=== PATIENT | female | born 1945 | race Caucasian/White ===

== ENCOUNTER 2019-05-24 10:14 | Inpatient (IN) | payer BC, MEDICARE ==
[2019-05-24] MEDS ORDERED: PANTOPRAZOLE SODIUM 40 MG VIAL IV PRN (10:35)
[2019-05-24] MEDS ORDERED: NORMAL SALINE 1000 ML 1,000 ML IV ONE (10:35)
[2019-05-24 11:01] LABS: ABSOLUTE EOSINOPHILS # (AUTO) 0.1 10^3/uL (0.0-0.6); ABSOLUTE LYMPHOCYTES (AUTO) 1.1 10^3/uL (0.5-4.7); ABSOLUTE MONOCYTES (AUTO) 0.6 10^3/uL (0.1-1.4); ABSOLUTE NEUT (AUTO) 4.7 10^3/uL (1.7-8.2); BASOPHILS % (AUTO) 0.7 % (0-2); EOSINOPHILS % (AUTO) 1.5 % (0-6); HEMATOCRIT 27.6 % (36.0-47.0); HEMOGLOBIN 9.3 g/dL (12.0-15.5); LYMPHOCYTES % (AUTO) 16.7 % (13-45); MEAN CORPUSCULAR HEMOGLOBIN 27.8 pg (27.0-33.4); MEAN CORPUSCULAR HGB CONC 33.6 g/dL (32.0-36.0); MEAN CORPUSCULAR VOLUME 83 fl (80-97); PLATELET COUNT 212 10^3/uL (150-450); RED BLOOD COUNT 3.33 10^6/uL (3.72-5.28); SEGMENTED NEUTROPHILS % (AUTO) 72.1 % (42-78); TOTAL CELLS COUNTED % (AUTO) 100 %; WHITE BLOOD COUNT 6.6 10^3/uL (4.0-10.5)
[2019-05-24 11:03] LABS: INTERNATIONAL RATION (INR) 1.09; PARTIAL THROMBOPLASTIN TIME 27.1 SEC (23.5-35.8); PROTHROMBIN TIME 14.2 SEC (11.4-15.4)
--- NOTE | 2019-05-24 11:13 | ER Document Report ---
ED GI/ - General Chief Complaint: Vomiting Stated Complaint: VOMITING Time Seen by Provider: 05/24/19 10:23 Notes: 73-year-old female presents with nausea vomiting starting this morning. The patient began vomiting coffee-ground emesis and dark blood. Patient has no history of liver disease. She has had a history of ulcers in the past. The patient states she is on blood thinners but does not recall which ones. She denies chest pain denies shortness of breath states she is vomited many times. States she has some epigastric abdominal pain. Denies hematuria or dysuria denies falls or trauma. Denies black bloody or tarry stools. TRAVEL OUTSIDE OF THE [place] IN LAST 30 DAYS: No - Related Data Allergies/Adverse Reactions: No Known Allergies Allergy (Unverified 05/22/14 13:57) Past Medical History - Social History Smoking Status: Never Smoker Family History: Reviewed & Not Pertinent, Other Patient has suicidal ideation: No Patient has homicidal ideation: No - Past Medical History Cardiac Medical History: Reports: Hx Hypercholesterolemia, Hx Hypertension Past Surgical History: Reports: Hx Cardiac Catheterization - no stents - Immunizations Hx Diphtheria, Pertussis, Tetanus Vaccination: Yes Hx Pneumococcal Vaccination: 09/18/14 Review of Systems - Review of Systems Constitutional: denies: Chills, Fever Respiratory: denies: Hurts to breathe, Short of breath Gastrointestinal: Abdomen distended, Abdominal pain, Nausea, Vomiting, Blood in vomit. denies: Blood streaked bowels, Rectal bleeding Genitourinary: denies: Dysuria, Flank pain Neurological/Psychological: denies: Headaches -: Yes All other systems reviewed and negative Physical Exam - Vital signs Vitals: Resp Pulse Ox 20 98 05/24/19 10:43 05/24/19 10:43 - Notes Notes: GENERAL_APPEARANCE: well_nourished, alert, cooperative, vomiting appears uncomfortable VITALS: reviewed, see vital signs table. HEAD: no_swelling\tenderness on the head. EYES: PERRL, EOMI, conjunctiva_clear. NOSE: no_nasal_discharge. MOUTH: (-)decreased moisture. THROAT: no_tonsilar_inflammation, no_airway_obstruction. no_lymphadenopathy NECK: supple, no_neck_tenderness, (-)thyromegaly. BACK: no_back_tenderness. CHEST_WALL: no_chest_tenderness. LUNGS: no_wheezing, no_rales, no_rhonchi, (-)accessory muscle use, good air ex change bilateral. HEART: normal_rate, normal_rhythm, normal_S1, normal_S2, (-)S3, (-)S4, no_murmur, no_rub. ABDOMEN: normal_BS, soft, epigastric_abd_tenderness, (-)guarding, (-)rebound, no_organomegaly, no_abd_masses. EXTREMITIES: good pulses in all_extremities, no_swelling\tenderness in the ext remities, no_edema. SKIN: warm, dry, pale_color, no_rash. MENTAL_STATUS: speech_clear, oriented_X_3, normal_affect, responds_appropriately to questions. NEURO: Neg Motor or Sensory Deficits on exam, CN 2-12 intact, DTR 2+ symmetric x 4, No cerbellar signs Course - Re-evaluation Re-evalutation: 05/24/19 11:11 73-year-old female comes in vomiting coffee-ground emesis and dark blood. Patient does have a history of gastric ulcers in the past we will give her IV fluids type and screen her and start her on a Protonix drip. Patient has no history of esophageal varices or liver disease. She denies heavy alcohol use. The patient is only on aspirin that I can tell for antiplatelet and anticoagulation. 05/24/19 14:00 Patient stopped vomiting and is feeling a bit better. Hemoglobin is above 9. Patient is typed and screened. We will continue the Protonix drip bring the patient in the hospital. We will speak with hospitalist service. - Vital Signs Vital signs: Temp Pulse Resp BP Pulse Ox 97.8 F 17 133/68 H 97 05/24/19 10:47 05/24/19 11:00 05/24/19 11:00 05/24/19 11:00 - Laboratory Result Diagrams: 05/24/19 10:40 05/24/19 10:40 Laboratory results interpreted by me: 05/24/19 05/24/19 10:40 10:40 RBC 3.33 L Hgb 9.3 L Hct 27.6 L BUN 37 H Glucose 126 H Total Protein 5.7 L Salicylates < 1.0 L Acetaminophen < 10 L - Diagnostic Test Radiology reviewed: Reports reviewed Radiology results interpreted by me: 05/24/19 14:00 Abdomen/Pelvis CT 05/24/19 10:35 IMPRESSION: NO SIGNIFICANT OR ACUTE FINDING IN THE ABDOMEN OR PELVIS ON CT SCAN WITH IV CONTRAST. Chest X-Ray 05/24/19 10:35 IMPRESSION: STABLE APPEARANCE OF THE CHEST. SUPPORT DEVICES UNCHANGED. Critical Care Note - Critical Care Note Total time excluding time spent on procedures (mins): 31 Discharge - Discharge Clinical Impression: Upper GI bleed Condition: Good Disposition: ADMITTED INPATIENT Admitting Provider: Tony (Hospitalist) Unit Admitted: Telemetry
[2019-05-24 11:20] LABS: ALBUMIN 3.6 g/dL (3.5-5.0); ALKALINE PHOSPHATASE 48 U/L (38-126); ANION GAP 8 (5-19); ASPARTATE AMINO TRANSFERASE 21 U/L (14-36); BILIRUBIN,DIRECT 0.1 mg/dL (0.0-0.4); BILIRUBIN,TOTAL 0.4 mg/dL (0.2-1.3); BLOOD UREA NITROGEN 37 mg/dL (7-20); CARBON DIOXIDE 29 mmol/L (22-30); CHLORIDE 103 mmol/L (98-107); GLUCOSE 126 mg/dL (75-110); TOTAL PROTEIN 5.7 g/dL (6.3-8.2)
[2019-05-24 11:23] LABS: ACETAMINOPHEN < 10 ug/mL (10-30); ALCOHOL < 10 mg/dL (NONE DETECTED); SALICYLATE < 1.0 mg/dL (2.0-20.0)
--- NOTE | 2019-05-24 12:07 | RADIOLOGY REPORT (SQ) ---
EXAM DESCRIPTION: CT ABD/PELVIS WITH IV ONLY COMPLETED DATE/TIME: 05/24/2019 11:54 am REASON FOR STUDY: ABD Pain Bleeding COMPARISON: None. TECHNIQUE: CT scan of the abdomen and pelvis performed using helical scanning technique with dynamic intravenous contrast injection. No oral contrast. Images reviewed with lung, soft tissue, and bone windows. Reconstructed coronal and sagittal MPR images reviewed. Delayed images for evaluation of the urinary system also acquired. All images stored on PACS. All CT scanners at this facility use dose modulation, iterative reconstruction, and/or weight based d osing when appropriate to reduce radiation dose to as low as reasonably achievable (ALARA). [facility]: Dose Right [facility]: CareDose [facility]: Dose Right [facility]: Teradose 4D [facility]: Avalara CONTRAST TYPE AND DOSE: contrast/concentration: Isovue 350.00 mg/ml; Total Contrast Delivered: 98.0 ml; Total Saline Delivered: 71.0 ml RENAL FUNCTION: BUN 37, creatinine 0.8 RADIATION DOSE: CT Rad equipment meets quality standard of care and radiation dose reduction techniq ues were employed. CTDIvol: 10.7 - 14.8 mGy. DLP: 1283 mGy-cm.. LIMITATIONS: None. FINDINGS: LOWER CHEST: No significant findings. No nodules or infiltrates. There is a small indeter minate 3.5 mm nodule in the right upper lobe anteriorly. This needs no further workup. LIVER: Normal size. No masses. No dilated ducts. SPLEEN: Normal size. No focal lesions. PANCREAS: No masses. No significant calcifications. No adjacent inflammation or peripancreatic fluid collections. Pancreatic duct not dilated. GALLBLADDER: Surgically absent. ADRENAL GLANDS: No significant masses or asymmetry. RIGHT KIDNEY AND URETER: No solid masses. No significant calcifications. No hydronephrosis or hyd roureter. LEFT KIDNEY AND URETER: No solid masses. No significant calcifications. No hydronephrosis or hydr oureter. AORTA AND VESSELS: No aneurysm. No dissection. Renal arteries, SMA, celiac without stenosis. RETROPERITONEUM: No retroperitoneal adenopathy, hemorrhage or masses. BOWEL AND PERITONEAL CAVITY: No masses or inflammatory changes. No free fluid or peritoneal masses. APPENDIX: Not visualized. PELVIS: Prior hysterectomy. No free fluid. ABDOMINAL WALL: No masses. No hernias. BONES: No significant or acute findings. OTHER: No other significant finding. IMPRESSION: NO SIGNIFICANT OR ACUTE FINDING IN THE ABDOMEN OR PELVIS ON CT SCAN WITH IV CONTRAST. TECHNICAL DOCUMENTATION: JOB ID: [id number] Quality ID # [id number]: Final reports with documentation of one or more dose reduction techniques (e.g., Au tomated exposure control, adjustment of the mA and/or kV according to patient size, use of iterative reconstruction technique) 2010 [employer]- All Rights Reserved Reading location - IP/workstation name: [email or web address]
--- NOTE | 2019-05-24 12:18 | RADIOLOGY REPORT (SQ) ---
EXAM DESCRIPTION: CHEST SINGLE VIEW COMPLETED DATE/TIME: 05/24/2019 12:10 pm REASON FOR STUDY: ABD Pain Bleeding COMPARISON: 09/15/2014 NUMBER OF VIEWS: One view. TECHNIQUE: Single frontal radiographic image of the chest acquired. LIMITATIONS: None. FINDINGS: LUNGS AND PLEURA: Stable appearance. MEDIASTINUM AND HILAR STRUCTURES: Stable heart size and mediastinal structures. HEART AND VASCULAR STRUCTURES: Stable appearance. SUPPORT DEVICES: Appropriate location without change. BONES: No acute findings. OTHER: No other significant finding. IMPRESSION: STABLE APPEARANCE OF THE CHEST. SUPPORT DEVICES UNCHANGED. TECHNICAL DOCUMENTATION: JOB ID: [id number] [employer]- All Rights Reserved Reading location - IP/workstation name: [email or web address]
[2019-05-24] MEDS ORDERED: DEXTROSE 50%-WATER 25 GM/50 ML DISP.SYRIN IV PRN ×2 (15:15)
[2019-05-24] MEDS ORDERED: DEXTROSE 40% GEL 15 GM TUBE PO PRN ×2 (15:15)
[2019-05-24] MEDS ORDERED: GLUCAGON,HUMAN RECOMB 1 MG INJ SUBCUT PRN (15:15)
[2019-05-24] MEDS ORDERED: ACETAMINOPHEN 650 MG SUPP.RECT PR PRN (15:15)
[2019-05-24] MEDS ORDERED: NORMAL SALINE 1000 ML 1,000 ML IV PRN (15:15)
[2019-05-24] MEDS ORDERED: ONDANSETRON 4 MG TAB.RAPDIS PO PRN (15:15)
--- NOTE | 2019-05-24 15:15 | PDOC H&P ---
History of Present Illness Admission Date/PCP: 05/24/19 14:12 Patient complains of: Coffee-ground emesis History of Present Illness: TIANA YORK is a 73 year old female with a past medical history of coronary artery disease, cerebrovascular accident, hypertension, hyperlipidemia, depression and borderline diabetes who has been sick for 1 week. Since her hospitalization in [place] in July for pneumonia with sepsis she had been feeling well. Last week she began to have profuse watery diarrhea. This was accompanied by abdominal pain. She denied fever or diaphoresis. She did have nausea. She did call her primary care physician and was at the office this morning when she experienced coffee-ground emesis. She was referred directly to the emergency department. Examination reveals a low hemoglobin with abdominal pain. She has not had any watery stool today. Vital signs are otherwise unremarkable. She was referred to the hospitalist service for admission. Past Medical History Cardiac Medical History: Reports: Coronary Artery Disease - 2 stents, Hyperlipidema, Hypertension Pulmonary Medical History: Reports: None EENT Medical History: Reports: None Neurological Medical History: Reports: Ischemic CVA Endocrine Medical History: Reports: Other - Borderline diabetes Renal/ Medical History: Reports: None Malignancy Medical History: Reports: None GI Medical History: Reports: Peptic Ulcer Disease Musculoskeltal Medical History: Reports: Arthritis, Fibromyalgia Skin Medical History: Denies: Eczema, Psoriasis Psychiatric Medical History: Reports: Depression Traumatic Medical History: Reports: None Hematology: Reports: Anemia Infectious Medical History: Reports: Other Infectious History Note: Shingles-multiple episodes Past Surgical History Past Surgical History: Reports: Cardiac Catheterization - no stents, Cholecystectomy, Hysterectomy Social History Information Source: Patient Lives with: Alone Smoking Status: Never Smoker - Uses snuff since 6 years old Frequency of Alcohol Use: None Drugs: None Hx Prescription Drug Abuse: No Past Social History Note: . Works in [employer]. - Advance Directive Resuscitation Status: Full Code Surrogate healthcare decision maker:: Her daughter Family History Family History: Reviewed & Not Pertinent, CVA, Malignancy, Other - Cerebral aneurysm Parental Family History Reviewed: Yes Children Family History Reviewed: Yes Sibling(s) Family History Reviewed.: Yes Medication/Allergy Home Medications: Acetaminophen/Diphenhydramine [Tylenol Pm Ex-Strength Caplet] 2 tab PO QHS 05/24/19 Aspirin [Adult Low Dose Aspirin EC] 81 mg PO DAILY 05/24/19 Atorvastatin Calcium [Lipitor 20 mg Tablet] 20 mg PO QHS 05/24/19 Cholecalciferol (Vitamin D3) [Vitamin D3 2000 unit Tablet] 2,000 unit PO DAILY 05/24/19 Escitalopram Oxalate [Lexapro] 20 mg PO DAILY 05/24/19 Fluticasone Propionate [Flonase Nasal [place] 50 Mcg/[place] 16 gm] 1 spray NASL DAILY 05/24/19 Furosemide [Lasix 40 mg Tablet] 40 mg PO DAILY 05/24/19 Gabapentin [Neurontin 300 mg Capsule] 300 mg PO Q8 05/24/19 Isosorbide Dinitrate 30 mg PO BID 05/24/19 Levothyroxine Sodium 100 mcg PO Q6AM 05/24/19 Loratadine [Claritin 10 mg Tablet] 10 mg PO DAILY 05/24/19 Meloxicam [Mobic] 7.5 mg PO BID 05/24/19 Metoprolol Tartrate [Lopressor 50 mg Tablet] 50 mg PO DAILY 05/24/19 Nitroglycerin 1 spray SL Q5MP PRN 05/24/19 Douglass-3/Dha/Epa/Fish Oil [[place] 3 500 Softgel] 1 cap PO DAILY 05/24/19 Potassium Chloride [Klor-Con M10] 10 meq PO DAILY 05/24/19 Ranolazine [Ranexa] 1,000 mg PO BID 05/24/19 Ticagrelor [Brilinta 90 mg Tablet] 90 mg PO BID 05/24/19 Triamcinolone Acetonide [Aristocort 0.1% Cream] 1 applic TOP DAILYP PRN 05/24/19 Allergies/Adverse Reactions: No Known Allergies Allergy (Unverified 05/22/14 13:57) Review of Systems Constitutional: PRESENT: as per HPI, fatigue. ABSENT: fever(s), headache(s), weight loss Eyes: ABSENT: visual disturbances Ears: ABSENT: hearing changes Nose, Mouth, and Throat: ABSENT: mouth pain, sore throat Cardiovascular: PRESENT: edema - After standing on her feet at work. ABSENT: chest pain, dyspnea on exertion, palpitations Respiratory: ABSENT: cough, dyspnea, hemoptysis Gastrointestinal: PRESENT: abdominal pain, coffee ground emesis, diarrhea, nausea, vomiting Genitourinary: ABSENT: difficulty urinating, dysuria, hematuria Musculoskeletal: PRESENT: back pain, other - Polyarthralgias Integumentary: ABSENT: diaphoresis, lesions, pruritus, rash Neurological: PRESENT: abnormal speech - Recent episode of garbled speech. Happens intermittently.. ABSENT: abnormal gait, abnormal movements, confusion, lack of coordination, memory loss, syncope, vertigo Psychiatric: PRESENT: depression. ABSENT: anxiety, hallucinations Endocrine: ABSENT: cold intolerance, heat intolerance, polydipsia, polyphagia, polyuria Hematologic/Lymphatic: PRESENT: easy bruising. ABSENT: lymphadenopathy Physical Exam Vital Signs: Temp Pulse Resp BP Pulse Ox 97.8 F 17 133/68 H 97 05/24/19 10:47 05/24/19 11:00 05/24/19 11:00 05/24/19 11:00 Intake & Output 05/23/19 05/24/19 05/25/19 06:59 06:59 06:59 Intake Total 1000 Balance 1000 Weight 76.657 kg General appearance: PRESENT: no acute distress, cooperative, well-developed Head exam: PRESENT: atraumatic, normocephalic Eye exam: PRESENT: conjunctiva pale, EOMI, other - Salas-Ros rings. ABS ENT: scleral icterus Ear exam: PRESENT: normal external ear exam. ABSENT: bleeding, drainage Mouth exam: PRESENT: dry mucosa, tongue midline Respiratory exam: PRESENT: clear to auscultation miesha, symmetrical, unlabored. ABSENT: accessory muscle use, rales, rhonchi, tachypnea, wheezes Cardiovascular exam: PRESENT: RRR, +S1, +S2. ABSENT: systolic murmur GI/Abdominal exam: PRESENT: diminished bowel sounds, soft, tenderness - diffuse across the lower abdomen. ABSENT: distended, guarding Rectal exam: PRESENT: deferred Extremities exam: PRESENT: pedal edema - trace. ABSENT: calf tenderness, joint swelling Musculoskeletal exam: PRESENT: normal inspection Neurological exam: PRESENT: alert, awake, oriented to person, oriented to place, oriented to time, oriented to situation, CN II-XII grossly intact Psychiatric exam: PRESENT: appropriate affect, normal mood. ABSENT: agitated, anxious Focused psych exam: ABSENT: delusional, restlessness Skin exam: PRESENT: pallor Results Laboratory Results: 05/24/19 10:40 05/24/19 10:40 05/24/19 05/24/19 05/24/19 10:40 10:40 10:40 WBC 6.6 RBC 3.33 L Hgb 9.3 L Hct 27.6 L MCV 83 MCH 27.8 MCHC 33.6 RDW 14.0 Plt Count 212 Seg Neutrophils % 72.1 Sodium 139.7 Potassium 4.0 Chloride 103 Carbon Dioxide 29 Anion Gap 8 BUN 37 H Creatinine 0.80 Est GFR ( Amer) > 60 Glucose 126 H Calcium 9.0 Total Bilirubin 0.4 AST 21 Alkaline Phosphatase 48 Total Protein 5.7 L Albumin 3.6 Lipase 67.5 Blood Type O POSITIVE Antibody Screen NEGATIVE Impressions: Abdomen/Pelvis CT 05/24/19 10:35 IMPRESSION: NO SIGNIFICANT OR ACUTE FINDING IN THE ABDOMEN OR PELVIS ON CT SCAN WITH IV CONTRAST. Chest X-Ray 05/24/19 10:35 IMPRESSION: STABLE APPEARANCE OF THE CHEST. SUPPORT DEVICES UNCHANGED. Assessment and Plan - Diagnosis (1) Upper GI bleed Is this a current diagnosis for this admission?: Yes Plan: 05/24/2019-the patient has a history of peptic ulcer disease. She is on antiplatelet medications as well as anti-inflammatory medications. The patient was seen and scoped by Dr. Toribio and an extremely expedient fashion and he was able to tell me that she has a small pyloric channel ulcer. We will continue her Protonix infusion for tonight and change to intermittent dosing melodie orrow. I will also add Carafate. We will keep her off of anti-inflammatory medications. I have held her aspirin and Brilinta for tonight and will resume tomorrow. (2) Anemia due to blood loss Is this a current diagnosis for this admission?: Yes Plan: 05/24/2019-it is likely she has intermittent blood loss over time. I will rec heck her hemoglobin. Endoscopy did not reveal active bleeding. I will also add iron supplement to her diet. (3) Coronary artery disease Qualifiers: Coronary Disease-Associated Artery/Lesion type: [place] artery [place] vs. transplanted heart: [place] heart Associated angina: without angina Qualified Code(s): I25.10 - Atherosclerotic heart disease of [place] [facility] Is this a current diagnosis for this admission?: Yes Plan: 05/24/2019-the patient has a history of coronary stents x2. As noted above I will resume the Brilinta and aspirin tomorrow. It is most likely that the meloxicam was the cause of the ulcer. She should stay off of nonsteroidal anti- inflammatory medications. (4) Hypertension Qualifiers: Hypertension type: essential hypertension Qualified Code(s): I10 - Essential (primary) hypertension Is this a current diagnosis for this admission?: Yes Plan: 05/24/2019-she is on metoprolol. Will monitor blood pressure and adjust medications accordingly. (5) Hyperlipidemia Qualifiers: Hyperlipidemia type: unspecified Qualified Code(s): E78.5 - Hyperlipidemia, unspecified Is this a current diagnosis for this admission?: Yes Plan: 05/24/2019-continue statin therapy. 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 (6) Polyarthralgia Is this a current diagnosis for this admission?: Yes Plan: 05/24/2019-the patient uses meloxicam daily. She will need to trial other methods for treating her arthritis as the anti-inflammatories are most likely responsible for her ulcer. - Time Time Spent with patient: 35 or more minutes Medications reviewed and adjusted accordingly: Yes Anticipated discharge: Home Within: within 72 hours - Inpatient Certification Based on my medical assessment, after consideration of the patient's comorbidities, presenting symptoms, or acuity I expect that the services needed warrant INPATIENT care.: Yes I certify that my determination is in accordance with my understanding of Medicare's requirements for reasonable and necessary INPATIENT services [42 CFR 412.3e].: Yes Medical Necessity: Need For IV Fluids, Need For Continuous Telemetry Monitoring, Other - Will need to monitor serial hemoglobin levels and possibly transfuse. 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
[2019-05-24] MEDS ORDERED: DIPHENHYDRAMINE HCL 50 MG/ML VIAL ONE (16:14)
[2019-05-24] MEDS ORDERED: ONDANSETRON HCL INJ/PF 4 MG/2 ML SDV ONE (16:14)
[2019-05-24] MEDS ORDERED: EPINEPHRINE INJ 1 MG/10 ML DISP.SYRIN ONE (16:15)
[2019-05-24] MEDS ORDERED: GLUCAGON,HUMAN RECOMB 1 MG INJ ONE (16:15)
[2019-05-24] MEDS ORDERED: MIDAZOLAM 2 MG/2 ML INJ ONE (16:15)
[2019-05-24] MEDS ORDERED: NALOXONE HCL INJ/PF 0.4 MG/1 ML SDV ONE (16:15)
[2019-05-24] MEDS ORDERED: FLUMAZENIL INJ 0.5 MG/5 ML VIAL ONE (16:15)
[2019-05-24] MEDS ORDERED: FENTANYL CITRATE INJ/PF 100 MCG/2 ML AMPUL ONE (16:15)
--- NOTE | 2019-05-24 16:15 | PDOC CONSULTATION ---
Consultation Consult Date: 05/24/19 Attending physician:: SHAHNAZ PUGH Provider Consulted: JAREK RITTER Consult reason:: gi bleed History of Present Illness Admission Date/PCP: 05/24/19 14:12 History of Present Illness: TIANA YORK is a 73 year old female presents with nausea vomiting starting this morning. The patient began vomiting coffee-ground emesis and dark blood. Patient has no history of liver disease. She has had a history of ulcers in the past. The patient states she is on blood thinners but does not recall which ones. She denies chest pain denies shortness of breath states she is vomited many times. States she has some epigastric abdominal pain. Denies hematuria or dysuria denies falls or trauma. Denies black bloody or tarry stools. Past Medical History Cardiac Medical History: Reports: Hyperlipidema, Hypertension Past Surgical History Past Surgical History: Reports: Cardiac Catheterization - no stents Social History Smoking Status: Never Smoker Frequency of Alcohol Use: None Family History Family History: Reviewed & Not Pertinent, Other Parental Family History Reviewed: No Children Family History Reviewed: NA Sibling(s) Family History Reviewed.: NA Medication/Allergy Home Medications: Acetaminophen/Diphenhydramine [Tylenol Pm Ex-Strength Caplet] 2 tab PO QHS 05/24/19 Aspirin [Adult Low Dose Aspirin EC] 81 mg PO DAILY 05/24/19 Atorvastatin Calcium [Lipitor 20 mg Tablet] 20 mg PO QHS 05/24/19 Cholecalciferol (Vitamin D3) [Vitamin D3 2000 unit Tablet] 2,000 unit PO DAILY 05/24/19 Escitalopram Oxalate [Lexapro] 20 mg PO DAILY 05/24/19 Fluticasone Propionate [Flonase Nasal [place] 50 Mcg/[place] 16 gm] 1 spray NASL DAILY 05/24/19 Furosemide [Lasix 40 mg Tablet] 40 mg PO DAILY 05/24/19 Gabapentin [Neurontin 300 mg Capsule] 300 mg PO Q8 05/24/19 Isosorbide Dinitrate 30 mg PO BID 05/24/19 Levothyroxine Sodium 100 mcg PO Q6AM 05/24/19 Loratadine [Claritin 10 mg Tablet] 10 mg PO DAILY 05/24/19 Meloxicam [Mobic] 7.5 mg PO BID 05/24/19 Metoprolol Tartrate [Lopressor 50 mg Tablet] 50 mg PO DAILY 05/24/19 Nitroglycerin 1 spray SL Q5MP PRN 05/24/19 Amlin-3/Dha/Epa/Fish Oil [[place]mlin 3 500 Softgel] 1 cap PO DAILY 05/24/19 Potassium Chloride [Klor-Con M10] 10 meq PO DAILY 05/24/19 Ranolazine [Ranexa] 1,000 mg PO BID 05/24/19 Ticagrelor [Brilinta 90 mg Tablet] 90 mg PO BID 05/24/19 Triamcinolone Acetonide [Aristocort 0.1% Cream] 1 applic TOP DAILYP PRN 05/24/19 Allergies/Adverse Reactions: No Known Allergies Allergy (Unverified 05/22/14 13:57) Review of Systems Constitutional: PRESENT: fatigue Eyes: ABSENT: visual disturbances Ears: ABSENT: hearing changes Nose, Mouth, and Throat: ABSENT: as per HPI, headache(s), mouth pain, sore throat, vertigo, other Breasts: ABSENT: as per HPI, other Cardiovascular: ABSENT: as per HPI, chest pain, dyspnea on exertion, edema, orthropnea, palpitations, other Respiratory: ABSENT: as per HPI, cough, dyspnea, hemoptysis, sputum, other Gastrointestinal: PRESENT: hematemesis, nausea, vomiting Genitourinary: ABSENT: as per HPI, difficulty urinating, dysuria, hematuria, nocturia, other Musculoskeletal: ABSENT: as per HPI, back pain, deformity, joint swelling, muscle weakness, other Integumentary: ABSENT: as per HPI, diaphoresis, erythema, lesions, pruritus, rash, wounds, other Neurological: ABSENT: as per HPI, abnormal gait, abnormal movements, abnormal speech, confusion, convulsions, dizziness, focal weakness, frequent falls, lack of coordination, memory loss, numbness, paresthesias, restless legs, syncope, tingling, tremor(s), vertigo, weakness, other Psychiatric: ABSENT: as per HPI, anxiety, depression, hallucinations, homidical ideation, suicidal ideation, other Endocrine: ABSENT: as per HPI, cold intolerance, flushing, heat intolerance, menstrual abnormalities, polydipsia, polyphagia, polyuria, other Hematologic/Lymphatic: ABSENT: as per HPI, easy bleeding, easy bruising, lymphadenopathy, other Allergic/Immunologic: ABSENT: as per HPI, seasonal rhinorrhea, other Physical Exam Vital Signs: Temp Pulse Resp BP Pulse Ox 97.8 F 17 133/68 H 97 05/24/19 10:47 05/24/19 11:00 05/24/19 11:00 05/24/19 11:00 Intake & Output 05/23/19 05/24/19 05/25/19 06:59 06:59 06:59 Intake Total 1000 Balance 1000 Weight 76.657 kg General appearance: PRESENT: no acute distress Head exam: PRESENT: normocephalic Eye exam: PRESENT: EOMI Ear exam: PRESENT: normal external ear exam Mouth exam: PRESENT: moist Teeth exam: PRESENT: poor dentation Neck exam: PRESENT: full ROM Respiratory exam: PRESENT: clear to auscultation miesha Cardiovascular exam: PRESENT: RRR Pulses: PRESENT: normal radial pulses, normal femoral pulses Vascular exam: PRESENT: pallor GI/Abdominal exam: PRESENT: soft Rectal exam: PRESENT: deferred Extremities exam: PRESENT: full ROM Musculoskeletal exam: PRESENT: full ROM Neurological exam: PRESENT: alert, awake, oriented to person, oriented to place Psychiatric exam: PRESENT: appropriate affect Skin exam: PRESENT: dry Results Laboratory Results: 05/24/19 10:40 05/24/19 10:40 05/24/19 05/24/19 05/24/19 10:40 10:40 10:40 WBC 6.6 RBC 3.33 L Hgb 9.3 L Hct 27.6 L MCV 83 MCH 27.8 MCHC 33.6 RDW 14.0 Plt Count 212 Seg Neutrophils % 72.1 Sodium 139.7 Potassium 4.0 Chloride 103 Carbon Dioxide 29 Anion Gap 8 BUN 37 H Creatinine 0.80 Est GFR ( Amer) > 60 Glucose 126 H Calcium 9.0 Total Bilirubin 0.4 AST 21 Alkaline Phosphatase 48 Total Protein 5.7 L Albumin 3.6 Lipase 67.5 Blood Type O POSITIVE Antibody Screen NEGATIVE Impressions: Abdomen/Pelvis CT 05/24/19 10:35 IMPRESSION: NO SIGNIFICANT OR ACUTE FINDING IN THE ABDOMEN OR PELVIS ON CT SCAN WITH IV CONTRAST. Chest X-Ray 05/24/19 10:35 IMPRESSION: STABLE APPEARANCE OF THE CHEST. SUPPORT DEVICES UNCHANGED. Assessment & Plan - Plan Summary Plan Summary: pt with previous hx of ulcer, on antiplatlets now hematemesis, and anemia related to gi bleed will plan on upper esophageogastroduodenoscopy.
--- NOTE | 2019-05-24 17:10 | Operative Report ---
Nonrecallable Operative Report DATE OF SURGERY: 05/24/19 PREOPERATIVE DIAGNOSIS: hemetemesis POSTOPERATIVE DIAGNOSIS: hemetemesis OPERATION: esophagogastroduodenoscopy SURGEON: JAREK RITTER ANESTHESIA: Moderate Sedation TISSUE REMOVED OR ALTERED: gastric ulcer bx COMPLICATIONS: none ESTIMATED BLOOD LOSS: 0 PROCEDURE: after appropiate time out and site verification patient was given IV sedation using fentanyl and Versed. She was placed in the left lateral decubitus position and the posterior pharynx was anesthetized with Hurricaine spray. The Olympus gastroscope was passed into the posterior pharynx patient easily to the scope past the proximal sphincter into the esophagus was passed in through the gastroesophageal junction to the stomach there is no obvious bleeding within the body and antrum of the stomach as we progressed through the antrum we noted the pylorus and just above the pylorus and the pyloric channel there was a ulcer approximately 0.5 cm diameter with heaped up to edges it was not bleeding and had a clean the central base. Scope was then passed into the pylorus into the second portion of the duodenum and that appeared to be normal without evidence evidence of any bleeding. As we withdrew the scope past the pylorus we checked again for any pyloric ulcers are worse none however this small 0.5 cm ulcers in the pyloric channel was again identified and biopsied one edge was biopsied with a biopsy forceps and hemostasis was noted to be intact after the biopsy was removed. Scope was then retroflexed to identify the GE junction and she had a moderate sized hiatal hernia. Scope was then straightened out and pulled slowly back through the gastroesophageal junction identifying the distal esophagus which appeared to be normal as we withdrew through the esophagus we did not note any other lesions. The scope was then removed. Impression ;pyloric channel ulcer nonbleeding biopsies pending Recommendations patient will be placed on a Protonix drip add Carafate suspension 10 cc p.o. 4 times daily Patient will need a surgical clinic follow-up after discharge
[2019-05-24] MEDS ORDERED: NITROGLYCERIN SL PRN (17:20)
[2019-05-24] MEDS ORDERED: (PENDING PHARMACY ID) (Ranolazine [Ranexa] 1,000 MG) PO SCH (18:00)
[2019-05-24] MEDS ORDERED: (PENDING PHARMACY ID) (Isosorbide Dinitrate [Isosorbide Dinitrate] 30 MG) PO SCH (18:00)
[2019-05-24] MEDS: GABAPENTIN 300 MG CAPSULE PO SCH (21:19)
[2019-05-24] MEDS: ISOSORBIDE DINITRATE 20 MG TABLET PO SCH ×2 (21:19→21:28)
[2019-05-24] MEDS: NORMAL SALINE 100 ML with PANTOPRAZOLE SODIUM 80 MG IV PRN ×2 (21:19)
[2019-05-24] MEDS: ATORVASTATIN CALCIUM 20 MG TABLET PO SCH (21:19)
[2019-05-24] MEDS: RANOLAZINE 500 MG TAB.SR.12H PO SCH (21:19)
[2019-05-24] MEDS: SUCRALFATE 1 GM TABLET PO SCH (21:20)
[2019-05-24] MEDS: TEMAZEPAM 15 MG CAPSULE PO PRN (21:22)
[2019-05-24 22:07] LABS: ABSOLUTE EOSINOPHILS # (AUTO) 0.1 10^3/uL (0.0-0.6); ABSOLUTE LYMPHOCYTES (AUTO) 1.3 10^3/uL (0.5-4.7); ABSOLUTE MONOCYTES (AUTO) 0.6 10^3/uL (0.1-1.4); ABSOLUTE NEUT (AUTO) 3.2 10^3/uL (1.7-8.2); BASOPHILS % (AUTO) 0.4 % (0-2); EOSINOPHILS % (AUTO) 1.7 % (0-6); HEMATOCRIT 21.3 % (36.0-47.0); LYMPHOCYTES % (AUTO) 24.9 % (13-45); MEAN CORPUSCULAR HGB CONC 33.8 g/dL (32.0-36.0); MEAN CORPUSCULAR VOLUME 83 fl (80-97); PLATELET COUNT 179 10^3/uL (150-450); RED BLOOD COUNT 2.57 10^6/uL (3.72-5.28); TOTAL CELLS COUNTED % (AUTO) 100 %; WHITE BLOOD COUNT 5.1 10^3/uL (4.0-10.5)
[2019-05-24 22:12] LABS: HEMOGLOBIN 7.2 g/dL (12.0-15.5)
[2019-05-24] MEDS ORDERED: ACETAMINOPHEN 325 MG TABLET PO PRN (23:22)
[2019-05-24] MEDS ORDERED: FUROSEMIDE INJ/PF 20 MG/2 ML SDV IV PRN (23:23)
[2019-05-25] MEDS: ACETAMINOPHEN 325 MG TABLET PO PRN (03:54)
[2019-05-25] MEDS: DIPHENHYDRAMINE HCL 25 MG CAPSULE PO PRN ×2 (03:54→09:35)
[2019-05-25] MEDS: LEVOTHYROXINE SODIUM 0.1 MG TABLET PO SCH (05:10)
[2019-05-25] MEDS: GABAPENTIN 300 MG CAPSULE PO SCH ×3 (05:10→21:14)
[2019-05-25 08:21] LABS: ANION GAP 6 (5-19); BLOOD UREA NITROGEN 24 mg/dL (7-20); CALCIUM 8.5 mg/dL (8.4-10.2); CARBON DIOXIDE 25 mmol/L (22-30); CHLORIDE 109 mmol/L (98-107); GLUCOSE 81 mg/dL (75-110); POTASSIUM 4.1 mmol/L (3.6-5.0)
[2019-05-25] MEDS: ISOSORBIDE DINITRATE 20 MG TABLET PO SCH ×2 (09:34→21:14)
[2019-05-25] MEDS: RANOLAZINE 500 MG TAB.SR.12H PO SCH ×2 (09:34→21:14)
[2019-05-25] MEDS: LORATADINE 10 MG TABLET PO SCH (09:34)
[2019-05-25] MEDS: FUROSEMIDE 40 MG TABLET PO SCH (09:34)
[2019-05-25] MEDS: METOPROLOL TARTRATE 50 MG TABLET PO SCH (09:34)
[2019-05-25] MEDS: ASPIRIN 81 MG TABLET, ENT COATED PO SCH (09:34)
[2019-05-25] MEDS: FERROUS SULFATE 325 MG TABLET PO SCH ×2 (09:35→18:29)
[2019-05-25] MEDS: POTASSIUM CHLORIDE 10 MEQ CAPSULE.ER PO SCH (09:35)
[2019-05-25] MEDS: ESCITALOPRAM OXALATE 10 MG TABLET PO SCH (09:35)
[2019-05-25] MEDS: FLUTICASONE NASAL SPRAY 50 MCG/SPRY 120 SPRAY/16 GM NASL SCH (09:36)
[2019-05-25] MEDS: SUCRALFATE 1 GM TABLET PO SCH ×4 (09:45→21:14)
[2019-05-25] MEDS ORDERED: TICAGRELOR 90 MG TABLET PO SCH (10:00)
[2019-05-25] MEDS ORDERED: (PENDING PHARMACY ID) (Potassium Chloride [Klor-Con M10] 10 MEQ) PO SCH (10:00)
[2019-05-25] MEDS: NORMAL SALINE 100 ML with PANTOPRAZOLE SODIUM 80 MG IV PRN ×2 (13:24)
--- NOTE | 2019-05-25 13:30 | PDOC PROGRESS REPORT ---
Subjective Progress Note for:: 05/25/19 Subjective:: Patient was seen and examined. She is doing well. She is tolerating diet. She had a bowel movement that was black today. Hemoglobin dropped to 7.2. She already received 1 unit of blood and will receive another unit today. EGD was positive for pyloric channel ulcer. Reason For Visit: UPPER GI BLEED Physical Exam Vital Signs: Temp Pulse Resp BP Pulse Ox 97.7 F 75 16 119/42 L 98 05/25/19 08:20 05/25/19 08:20 05/25/19 08:20 05/25/19 08:20 05/25/19 08:20 Intake & Output 05/24/19 05/25/19 05/26/19 06:59 06:59 06:59 Intake Total 2400 350 Balance 2400 350 Weight 169 lb 8.568 oz Exam: Patient is no acute distress Alert oriented to time place person No anxiety or depression Head: atraumatic normocephalic Pupils: are equal reactive Neck: is supple and trachea is central no lymphadenopathy No pharyngeal erythema or exudates Heart: Regular rate and rhythm Lungs: clear no distress Abdomen: nontender nondistended Neurological exam: unremarkable Musculoskeletal: No joint swelling or effusion chronic lower back pain and tenderness No suicidal or homicidal ideation Results Laboratory Results: 05/24/19 21:56 05/25/19 07:37 05/24/19 05/24/19 05/25/19 10:40 21:56 07:37 WBC 5.1 RBC 2.57 L Hgb 7.2 L D Hct 21.3 L MCV 83 MCH 28.0 MCHC 33.8 RDW 14.0 Plt Count 179 Seg Neutrophils % 62.0 Sodium 139.8 Potassium 4.1 Chloride 109 H Carbon Dioxide 25 Anion Gap 6 BUN 24 H Creatinine 0.84 Est GFR ( Amer) > 60 Glucose 81 Calcium 8.5 Magnesium 2.2 TSH Blood Type O POSITIVE Antibody Screen NEGATIVE 05/25/19 07:37 WBC RBC Hgb Hct MCV MCH MCHC RDW Plt Count Seg Neutrophils % Sodium Potassium Chloride Carbon Dioxide Anion Gap BUN Creatinine Est GFR ( Amer) Glucose Calcium Magnesium TSH 0.04 L Blood Type Antibody Screen Impressions: Abdomen/Pelvis CT 05/24/19 10:35 IMPRESSION: NO SIGNIFICANT OR ACUTE FINDING IN THE ABDOMEN OR PELVIS ON CT SCAN WITH IV CONTRAST. Chest X-Ray 05/24/19 10:35 IMPRESSION: STABLE APPEARANCE OF THE CHEST. SUPPORT DEVICES UNCHANGED. Assessment and Plan - Diagnosis (1) Upper GI bleed Is this a current diagnosis for this admission?: Yes Plan: 05/24/2019-the patient has a history of peptic ulcer disease. She is on ant iplatelet medications as well as anti-inflammatory medications. The patient was seen and scoped by Dr. Toribio and an extremely expedient fashion and he was able to tell me that she has a small pyloric channel ulcer. We will continue her Protonix infusion for tonight and change to intermittent dosing tomorrow. I will also add Carafate. We will keep her off of anti-inflammatory medications. I have held her aspirin and Brilinta for tonight and will resume tomorrow. 05/25/2019: Stop NSAIDs. Continue Protonix drip and Carafate. Continue aspirin. Hold Brilinta for now. (2) Anemia due to blood loss Is this a current diagnosis for this admission?: Yes Plan: 05/24/2019-it is likely she has intermittent blood loss over time. I will recheck her hemoglobin. Endoscopy did not reveal active bleeding. I will also add iron supplement to her diet. 05/25: Hemoglobin dropped to 7.2. She received 1 unit and will get another unit today. Monitor hemoglobin hematocrit. Transfuse as needed. (3) Coronary artery disease Qualifiers: Coronary Disease-Associated Artery/Lesion type: [place] artery [place] vs. transplanted heart: [place] heart Associated angina: without angina Qualified Code(s): I25.10 - Atherosclerotic heart disease of [place] coronary artery without angina pectoris Is this a current diagnosis for this admission?: Yes Plan: 05/24/2019-the patient has a history of coronary stents x2. As noted above I will resume the Brilinta and aspirin tomorrow. It is most likely that the meloxicam was the cause of the ulcer. She should stay off of nonsteroidal anti- inflammatory medications. 05/25: Continue aspirin. Hold Brilinta for now. Continue all cardiac medications otherwise. (4) Hyperlipidemia Qualifiers: Hyperlipidemia type: unspecified Qualified Code(s): E78.5 - Hyperlipidemia, unspecified Is this a current diagnosis for this admission?: Yes Plan: 05/24/2019-continue statin therapy. Will not make any dose adjustments but rather defer to her business process associate. 05/25: Continue statin (5) Hypertension Qualifiers: Hypertension type: essential hypertension Qualified Code(s): I10 - Essential (primary) hypertension Is this a current diagnosis for this admission?: Yes Plan: 05/24/2019-she is on metoprolol. Will monitor blood pressure and adjust medications accordingly. 05/25: Continue current meds. Monitor blood pressure. (6) Polyarthralgia Is this a current diagnosis for this admission?: Yes Plan: 05/24/2019-the patient uses meloxicam daily. She will need to trial other methods for treating her arthritis as the anti-inflammatories are most likely responsible for her ulcer. 05/25: Recommend against NSAIDs.
[2019-05-25 14:08] LABS: ANION GAP 7 (5-19); BLOOD UREA NITROGEN 20 mg/dL (7-20); CALCIUM 8.2 mg/dL (8.4-10.2); CARBON DIOXIDE 28 mmol/L (22-30); CHLORIDE 106 mmol/L (98-107); GLUCOSE 101 mg/dL (75-110); POTASSIUM 3.9 mmol/L (3.6-5.0)
[2019-05-25 17:30] LABS: ABSOLUTE EOSINOPHILS # (AUTO) 0.1 10^3/uL (0.0-0.6); ABSOLUTE LYMPHOCYTES (AUTO) 1.5 10^3/uL (0.5-4.7); ABSOLUTE MONOCYTES (AUTO) 0.6 10^3/uL (0.1-1.4); ABSOLUTE NEUT (AUTO) 4.8 10^3/uL (1.7-8.2); BASOPHILS % (AUTO) 0.5 % (0-2); EOSINOPHILS % (AUTO) 1.6 % (0-6); HEMATOCRIT 29.8 % (36.0-47.0); MEAN CORPUSCULAR HEMOGLOBIN 27.9 pg (27.0-33.4); MEAN CORPUSCULAR HGB CONC 33.8 g/dL (32.0-36.0); MEAN CORPUSCULAR VOLUME 83 fl (80-97); MONOCYTES % (AUTO) 8.5 % (3-13); PLATELET COUNT 188 10^3/uL (150-450); RED CELL DISTRIBUTION WIDTH 14.3 % (11.5-14.0); SEGMENTED NEUTROPHILS % (AUTO) 68.4 % (42-78); TOTAL CELLS COUNTED % (AUTO) 100 %
[2019-05-25 17:33] LABS: HEMOGLOBIN 10.1 g/dL (12.0-15.5)
[2019-05-25] MEDS: TEMAZEPAM 15 MG CAPSULE PO PRN (21:14)
[2019-05-25] MEDS: ATORVASTATIN CALCIUM 20 MG TABLET PO SCH (21:14)
[2019-05-26 05:29] LABS: ABSOLUTE EOSINOPHILS # (AUTO) 0.2 10^3/uL (0.0-0.6); ABSOLUTE LYMPHOCYTES (AUTO) 1.9 10^3/uL (0.5-4.7); ABSOLUTE MONOCYTES (AUTO) 0.6 10^3/uL (0.1-1.4); ABSOLUTE NEUT (AUTO) 4.4 10^3/uL (1.7-8.2); BASOPHILS % (AUTO) 0.5 % (0-2); EOSINOPHILS % (AUTO) 2.5 % (0-6); HEMATOCRIT 28.7 % (36.0-47.0); HEMOGLOBIN 9.7 g/dL (12.0-15.5); LYMPHOCYTES % (AUTO) 26.9 % (13-45); MEAN CORPUSCULAR HEMOGLOBIN 28.2 pg (27.0-33.4); MEAN CORPUSCULAR HGB CONC 33.8 g/dL (32.0-36.0); MEAN CORPUSCULAR VOLUME 84 fl (80-97); MONOCYTES % (AUTO) 8.4 % (3-13); PLATELET COUNT 167 10^3/uL (150-450); RED BLOOD COUNT 3.43 10^6/uL (3.72-5.28); RED CELL DISTRIBUTION WIDTH 14.4 % (11.5-14.0); SEGMENTED NEUTROPHILS % (AUTO) 61.7 % (42-78); TOTAL CELLS COUNTED % (AUTO) 100 %
[2019-05-26] MEDS: LEVOTHYROXINE SODIUM 0.1 MG TABLET PO SCH (05:43)
[2019-05-26] MEDS: GABAPENTIN 300 MG CAPSULE PO SCH ×3 (05:43→21:51)
[2019-05-26] MEDS: NORMAL SALINE 100 ML with PANTOPRAZOLE SODIUM 80 MG IV PRN ×2 (05:45)
[2019-05-26] MEDS: FERROUS SULFATE 325 MG TABLET PO SCH ×2 (08:20→18:58)
[2019-05-26] MEDS: SUCRALFATE 1 GM TABLET PO SCH ×4 (08:20→21:51)
[2019-05-26] MEDS: METOPROLOL TARTRATE 50 MG TABLET PO SCH (10:39)
[2019-05-26] MEDS: LORATADINE 10 MG TABLET PO SCH (10:40)
[2019-05-26] MEDS: ASPIRIN 81 MG TABLET, ENT COATED PO SCH (10:40)
[2019-05-26] MEDS: POTASSIUM CHLORIDE 10 MEQ CAPSULE.ER PO SCH (10:41)
[2019-05-26] MEDS: FLUTICASONE NASAL SPRAY 50 MCG/SPRY 120 SPRAY/16 GM NASL SCH (10:41)
[2019-05-26] MEDS: ISOSORBIDE DINITRATE 20 MG TABLET PO SCH ×2 (10:42→21:51)
[2019-05-26] MEDS: FUROSEMIDE 40 MG TABLET PO SCH (10:43)
[2019-05-26] MEDS: ESCITALOPRAM OXALATE 10 MG TABLET PO SCH (10:43)
[2019-05-26] MEDS: RANOLAZINE 500 MG TAB.SR.12H PO SCH ×2 (10:45→21:51)
--- NOTE | 2019-05-26 13:27 | PDOC PROGRESS REPORT ---
Subjective Progress Note for:: 05/26/19 Subjective:: 05/25: Patient was seen and examined. She is doing well. She is tolerating diet. She had a bowel movement that was black today. Hemoglobin dropped to 7.2. She already received 1 unit of blood and will receive another unit today. EGD was positive for pyloric channel ulcer. 05/26: Patient is tolerating diet. She is feeling better. Her hemoglobin improved after transfusion. She is still on Protonix drip. Reason For Visit: UPPER GI BLEED Physical Exam Vital Signs: Temp Pulse Resp BP Pulse Ox 97.8 F 67 17 106/49 L 100 05/26/19 12:14 05/26/19 12:14 05/26/19 12:14 05/26/19 12:14 05/26/19 12:14 Intake & Output 05/25/19 05/26/19 05/27/19 06:59 06:59 06:59 Intake Total 2400 2381 Output Total 500 Balance 2400 1881 Weight 169 lb 8.568 oz 168 lb 10.458 oz Exam: Patient is no acute distress Alert oriented to time place person No anxiety or depression Head: atraumatic normocephalic Pupils: are equal reactive Neck: is supple and trachea is central no lymphadenopathy No pharyngeal erythema or exudates Heart: Regular rate and rhythm Lungs: clear no distress Abdomen: nontender nondistended Neurological exam: unremarkable Musculoskeletal: No joint swelling or effusion chronic lower back pain and tenderness No suicidal or homicidal ideation Results Laboratory Results: 05/26/19 04:21 05/25/19 13:40 05/25/19 05/25/19 05/26/19 13:40 17:09 04:21 WBC 7.0 7.0 RBC 3.60 L 3.43 L Hgb 10.1 L D 9.7 L Hct 29.8 L 28.7 L MCV 83 84 MCH 27.9 28.2 MCHC 33.8 33.8 RDW 14.3 H 14.4 H Plt Count 188 167 Seg Neutrophils % 68.4 61.7 Sodium 140.7 Potassium 3.9 Chloride 106 Carbon Dioxide 28 Anion Gap 7 BUN 20 Creatinine 0.85 Est GFR ( Amer) > 60 Glucose 101 Calcium 8.2 L Impressions: Abdomen/Pelvis CT 05/24/19 10:35 IMPRESSION: NO SIGNIFICANT OR ACUTE FINDING IN THE ABDOMEN OR PELVIS ON CT SCAN WITH IV CONTRAST. Chest X-Ray 05/24/19 10:35 IMPRESSION: STABLE APPEARANCE OF THE CHEST. SUPPORT DEVICES UNCHANGED. Assessment and Plan - Diagnosis (1) Upper GI bleed Is this a current diagnosis for this admission?: Yes Plan: 05/24: the patient has a history of peptic ulcer disease. She is on antiplatelet medications as well as anti-inflammatory medications. The patient was seen and scoped by Dr. Toribio and an extremely expedient fashion and he was able to tell me that she has a small pyloric channel ulcer. We will continue her Protonix infusion for tonight and change to intermittent dosing tomorrow. I will also add Carafate. We will keep her off of anti-inflammatory medications. I have held her aspirin and Brilinta for tonight and will resume tomorrow. 05/25: Stop NSAIDs. Continue Protonix drip and Carafate. Continue aspirin. Hold Brilinta for now. 05/26: DC Protonix drip and start oral Protonix. Continue Carafate. Continue aspirin. Continue to hold Brilinta. (2) Anemia due to blood loss Is this a current diagnosis for this admission?: Yes Plan: 05/24/2019-it is likely she has intermittent blood loss over time. I will recheck her hemoglobin. Endoscopy did not reveal active bleeding. I will also add iron supplement to her diet. 05/25: Hemoglobin dropped to 7.2. She received 1 unit and will get another unit today. Monitor hemoglobin hematocrit. Transfuse as needed. 05/26: Hemoglobin improved to 9.7 today after transfusions 2 units yesterday. Continue to monitor. (3) Coronary artery disease Qualifiers: Coronary Disease-Associated Artery/Lesion type: [place] artery [place] vs. transplanted heart: [place] heart Associated angina: without angina Qualified Code(s): I25.10 - Atherosclerotic heart disease of [place] coronary artery without angina pectoris Is this a current diagnosis for this admission?: Yes Plan: 05/24/2019-the patient has a history of coronary stents x2. As noted above I will resume the Brilinta and aspirin tomorrow. It is most likely that the melox icam was the cause of the ulcer. She should stay off of nonsteroidal anti- inflammatory medications. 05/25: Continue aspirin. Hold Brilinta for now. Continue all cardiac medications otherwise. 05/26: Continue to hold for now. (4) Hyperlipidemia Qualifiers: Hyperlipidemia type: unspecified Qualified Code(s): E78.5 - Hyperlipidemia, unspecified Is this a current diagnosis for this admission?: Yes Plan: 05/24/2019-continue statin therapy. 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 05/25: Continue statin (5) Hypertension Qualifiers: Hypertension type: essential hypertension Qualified Code(s): I10 - Essential (primary) hypertension Is this a current diagnosis for this admission?: Yes Plan: 05/24/2019-she is on metoprolol. Will monitor blood pressure and adjust medications accordingly. 05/25: Continue current meds. Monitor blood pressure. (6) Polyarthralgia Is this a current diagnosis for this admission?: Yes Plan: 05/24/2019-the patient uses meloxicam daily. She will need to trial other methods for treating her arthritis as the anti-inflammatories are most likely responsible for her ulcer. 05/25: Recommend against NSAIDs.
[2019-05-26 14:00] LABS: ANION GAP 5 (5-19); BLOOD UREA NITROGEN 15 mg/dL (7-20); CALCIUM 8.8 mg/dL (8.4-10.2); CARBON DIOXIDE 29 mmol/L (22-30); CHLORIDE 106 mmol/L (98-107); GLUCOSE 86 mg/dL (75-110); POTASSIUM 3.9 mmol/L (3.6-5.0)
[2019-05-26] MEDS: PANTOPRAZOLE SODIUM 40 MG TABLET.DR PO SCH (18:57)
[2019-05-26] MEDS: TEMAZEPAM 15 MG CAPSULE PO PRN (21:51)
[2019-05-26] MEDS: ATORVASTATIN CALCIUM 20 MG TABLET PO SCH (21:51)
[2019-05-27] MEDS: GABAPENTIN 300 MG CAPSULE PO SCH (05:23)
[2019-05-27] MEDS: LEVOTHYROXINE SODIUM 0.1 MG TABLET PO SCH (05:23)
[2019-05-27 06:55] LABS: ABSOLUTE EOSINOPHILS # (AUTO) 0.2 10^3/uL (0.0-0.6); ABSOLUTE LYMPHOCYTES (AUTO) 1.6 10^3/uL (0.5-4.7); ABSOLUTE MONOCYTES (AUTO) 0.6 10^3/uL (0.1-1.4); ABSOLUTE NEUT (AUTO) 4.4 10^3/uL (1.7-8.2); BASOPHILS % (AUTO) 0.2 % (0-2); EOSINOPHILS % (AUTO) 2.3 % (0-6); HEMATOCRIT 29.6 % (36.0-47.0); LYMPHOCYTES % (AUTO) 23.5 % (13-45); MEAN CORPUSCULAR HGB CONC 33.8 g/dL (32.0-36.0); MEAN CORPUSCULAR VOLUME 83 fl (80-97); MONOCYTES % (AUTO) 8.3 % (3-13); PLATELET COUNT 182 10^3/uL (150-450); RED BLOOD COUNT 3.58 10^6/uL (3.72-5.28); RED CELL DISTRIBUTION WIDTH 14.4 % (11.5-14.0); SEGMENTED NEUTROPHILS % (AUTO) 65.7 % (42-78); TOTAL CELLS COUNTED % (AUTO) 100 %; WHITE BLOOD COUNT 6.7 10^3/uL (4.0-10.5)
[2019-05-27] MEDS: FERROUS SULFATE 325 MG TABLET PO SCH (09:19)
[2019-05-27] MEDS: SUCRALFATE 1 GM TABLET PO SCH ×2 (09:19→11:14)
[2019-05-27] MEDS: RANOLAZINE 500 MG TAB.SR.12H PO SCH (09:20)
[2019-05-27] MEDS: ESCITALOPRAM OXALATE 10 MG TABLET PO SCH (09:20)
[2019-05-27] MEDS: LORATADINE 10 MG TABLET PO SCH (09:20)
[2019-05-27] MEDS: POTASSIUM CHLORIDE 10 MEQ CAPSULE.ER PO SCH (09:20)
[2019-05-27] MEDS: ISOSORBIDE DINITRATE 20 MG TABLET PO SCH (09:20)
[2019-05-27] MEDS: ASPIRIN 81 MG TABLET, ENT COATED PO SCH (09:21)
[2019-05-27] MEDS: PANTOPRAZOLE SODIUM 40 MG TABLET.DR PO SCH (09:21)
[2019-05-27] MEDS: METOPROLOL TARTRATE 50 MG TABLET PO SCH (09:21)
[2019-05-27] MEDS: FUROSEMIDE 40 MG TABLET PO SCH (09:21)
[2019-05-27] MEDS: FLUTICASONE NASAL SPRAY 50 MCG/SPRY 120 SPRAY/16 GM NASL SCH (09:21)
[2019-05-27] MEDS: ACETAMINOPHEN 325 MG TABLET PO PRN (11:14)
--- NOTE | 2019-05-27 11:23 | PDOC DISCHARGE SUMMARY ---
General - Admit/Disc Date/PCP Admission Date/Primary Care Provider: 05/24/19 14:12 Discharge Date: 05/27/19 - Discharge Diagnosis (1) Upper GI bleed Is this a current diagnosis for this admission?: Yes (2) Anemia due to blood loss Is this a current diagnosis for this admission?: Yes (3) Coronary artery disease Is this a current diagnosis for this admission?: Yes (4) Hyperlipidemia Is this a current diagnosis for this admission?: Yes (5) Hypertension Is this a current diagnosis for this admission?: Yes (6) Polyarthralgia Is this a current diagnosis for this admission?: Yes - Additional Information Resuscitation Status: Full Code Discharge Diet: As Tolerated Discharge Activity: Activity As Tolerated Prescriptions: Sucralfate [Carafate 1 gm Tablet] 1 gm PO ACHS #120 tablet Ferrous Sulfate [Feosol 325 mg Tablet] 325 mg PO BID #60 tablet Pantoprazole Sodium [Protonix [address] Tablet] 40 mg PO BID #60 tablet.dr Home Medications: Acetaminophen/Diphenhydramine [Tylenol Pm Ex-Strength Caplet] 2 tab PO QHS 05/24/19 Aspirin [Adult Low Dose Aspirin EC] 81 mg PO DAILY 05/24/19 Atorvastatin Calcium [Lipitor 20 mg Tablet] 20 mg PO QHS 05/24/19 Cholecalciferol (Vitamin D3) [Vitamin D3 2000 unit Tablet] 2,000 unit PO DAILY 05/24/19 Escitalopram Oxalate [Lexapro] 20 mg PO DAILY 05/24/19 Fluticasone Propionate [Flonase Nasal [place] 50 Mcg/[place] 16 gm] 1 spray NASL DAILY 05/24/19 Furosemide [Lasix 40 mg Tablet] 40 mg PO DAILY 05/24/19 Gabapentin [Neurontin 300 mg Capsule] 300 mg PO Q8 05/24/19 Isosorbide Dinitrate 30 mg PO BID 05/24/19 Levothyroxine Sodium 100 mcg PO Q6AM 05/24/19 Loratadine [Claritin 10 mg Tablet] 10 mg PO DAILY 05/24/19 Metoprolol Tartrate [Lopressor 50 mg Tablet] 50 mg PO DAILY 05/24/19 Nitroglycerin 1 spray SL Q5MP PRN 05/24/19 [place]-3/Dha/Epa/Fish Oil [[place] 3 500 Softgel] 1 cap PO DAILY 05/24/19 Potassium Chloride [Klor-Con M10] 10 meq PO DAILY 05/24/19 Ranolazine [Ranexa] 1,000 mg PO BID 05/24/19 Ticagrelor [Brilinta 90 mg Tablet] 90 mg PO BID 05/24/19 Triamcinolone Acetonide [Aristocort 0.1% Cream] 1 applic TOP DAILYP PRN 05/24/19 Acetaminophen [Tylenol 325 mg Tablet] 650 mg PO Q6HP PRN tablet 05/27/19 Ferrous Sulfate [Feosol 325 mg Tablet] 325 mg PO BID #60 tablet 05/27/19 Pantoprazole Sodium [Protonix [address] Tablet] 40 mg PO BID #60 tablet.dr 05/27/19 Sucralfate [Carafate 1 gm Tablet] 1 gm PO ACHS #120 tablet 05/27/19 History of Present Illness History of Present Illness: TIANA YORK is a 73 year old female with a past medical history of coronary artery disease, cerebrovascular accident, hypertension, hyperlipidemia, depression and borderline diabetes who has been sick for 1 week. Since her hospitalization in [place] in July for pneumonia with sepsis she had been feeling well. Last week she began to have profuse watery diarrhea. This was accompanied by abdominal pain. She denied fever or diaphoresis. She did plascencia ve nausea. She did call her primary care physician and was at the office this morning when she experienced coffee-ground emesis. She was referred directly to the emergency department. Examination reveals a low hemoglobin with abdominal pain. She has not had any watery stool today. Vital signs are otherwise unremarkable. She was referred to the hospitalist service for admission. Hospital Course Hospital Course: (1) Upper GI bleed 05/24: the patient has a history of peptic ulcer disease. She is on antiplatelet medications as well as anti-inflammatory medications. The patient was seen and scoped by Dr. Toribio and an extremely expedient fashion and he was able to tell me that she has a small pyloric channel ulcer. We will continue her Prot juan infusion for tonight and change to intermittent dosing tomorrow. I will also add Carafate. We will keep her off of anti-inflammatory medications. I have held her aspirin and Brilinta for tonight and will resume tomorrow. 05/25: Stop NSAIDs. Continue Protonix drip and Carafate. Continue aspirin. Hold Brilinta for now. 05/26: DC Protonix drip and start oral Protonix. Continue Carafate. Continue aspirin. Continue to hold Brilinta. (2) Anemia due to blood loss 05/24/2019-it is likely she has intermittent blood loss over time. I will recheck her hemoglobin. Endoscopy did not reveal active bleeding. I will also add iron supplement to her diet. 05/25: Hemoglobin dropped to 7.2. She received 1 unit and will get another unit today. Monitor hemoglobin hematocrit. Transfuse as needed. 05/26: Hemoglobin improved to 9.7 today after transfusions 2 units yesterday. Continue to monitor. (3) Coronary artery disease 05/24/2019-the patient has a history of coronary stents x2. As noted above I will resume the Brilinta and aspirin tomorrow. It is most likely that the meloxicam was the cause of the ulcer. She should stay off of nonsteroidal anti- inflammatory medications. 05/25: Continue aspirin. Hold Brilinta for now. Continue all cardiac medications otherwise. 05/26: Continue to hold for now. (4) Hyperlipidemia 05/24/2019-continue statin therapy. 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 05/25: Continue statin (5) Hypertension 05/24/2019-she is on metoprolol. Will monitor blood pressure and adjust medications accordingly. 05/25: Continue current meds. Monitor blood pressure. (6) Polyarthralgia 05/24/2019-the patient uses meloxicam daily. She will need to trial other methods for treating her arthritis as the anti-inflammatories are most likely responsible for her ulcer. 05/25: Recommend against NSAIDs. Hemoglobin has been stable. She was given prescription for Protonix and Ativan. Continue aspirin. Hold presented to next week. Discussed with the patient and she is in agreement. She is tolerating diet and stable for discharge. Physical Exam Vital Signs: Temp Pulse Resp BP Pulse Ox 97.5 F 64 18 111/40 L 100 05/27/19 09:16 05/27/19 09:16 05/27/19 09:16 05/27/19 09:16 05/27/19 09:16 Intake & Output 05/26/19 05/27/19 05/28/19 06:59 06:59 06:59 Intake Total 2381 2137 Output Total 500 Balance 1881 2137 Weight 168 lb 10.458 oz 176 lb 9.444 oz Exam: Patient is no acute distress Alert oriented to time place person No anxiety or depression Head: atraumatic normocephalic Pupils: are equal reactive Neck: is supple and trachea is central no lymphadenopathy No pharyngeal erythema or exudates Heart: Regular rate and rhythm Lungs: clear no distress Abdomen: nontender nondistended Neurological exam: unremarkable Musculoskeletal: No joint swelling or effusion chronic lower back pain and t enderness No suicidal or homicidal ideation Results Laboratory Results: 05/27/19 05:13 05/26/19 04:21 05/26/19 05/27/19 04:21 05:13 WBC 6.7 RBC 3.58 L Hgb 10.0 L Hct 29.6 L MCV 83 MCH 28.0 MCHC 33.8 RDW 14.4 H Plt Count 182 Seg Neutrophils % 65.7 Sodium 139.9 Potassium 3.9 Chloride 106 Carbon Dioxide 29 Anion Gap 5 BUN 15 Creatinine 0.93 Est GFR ( Amer) > 60 Glucose 86 Calcium 8.8 Impressions: Abdomen/Pelvis CT 05/24/19 10:35 IMPRESSION: NO SIGNIFICANT OR ACUTE FINDING IN THE ABDOMEN OR PELVIS ON CT SCAN WITH IV CONTRAST. Chest X-Ray 05/24/19 10:35 IMPRESSION: STABLE APPEARANCE OF THE CHEST. SUPPORT DEVICES UNCHANGED. Qualifiers - * PATIENT BEING DISCHARGED WITH ANY OF THE FOLLOWING DIAGNOSIS: No Acute Heart Failure - Is this a Heart Failure Patient?: No Plan Time Spent: Greater than 30 Minutes - 35 min
[2019-05-27 12:53] VITALS: BP 103/34
== END 2019-05-27 14:41 | disposition home or self-care (01) | DRG 379 ==
LOC: ER 10:14 → EH 14:12 → 4S 19:05
PROVIDERS: ADMIT Hospitalist; ATTEND Hospitalist
PROC: 0DB78ZX Excision of Stomach, Pylorus, Via Natural or Artificial Opening Endoscopic, Diagnostic (ICD-10-PCS; principal; 2019-05-24 16:25)
DX: K25.4 Chronic or unspecified gastric ulcer with hemorrhage (principal); D50.0 Iron deficiency anemia secondary to blood loss (chronic); I25.10 Atherosclerotic heart disease of native coronary artery without angina pectoris; E78.5 Hyperlipidemia, unspecified; I10 Essential (primary) hypertension; M25.50 Pain in unspecified joint; F32.9 Major depressive disorder, single episode, unspecified; M79.7 Fibromyalgia; E78.00 Pure hypercholesterolemia, unspecified; Z60.2 Problems related to living alone; Z79.899 Other long term (current) drug therapy; Z86.73 Personal history of transient ischemic attack (TIA), and cerebral infarction without residual deficits; Z87.11 Personal history of peptic ulcer disease; Z79.01 Long term (current) use of anticoagulants; Z79.1 Long term (current) use of non-steroidal anti-inflammatories (NSAID); Z79.82 Long term (current) use of aspirin
CPT/HCPCS: 36415; 36430; 43239; 71045; 74177; 80048; 80053; 80307; 82962; 83690; 83735; 84443; 85025; 85610; 85730; 86850; 86900; 86901; 86920; 88305; 88342; 96360; 99291; J0171; J1200; J1610; J2250; J2310; J2405; J3010; J3490; J7030; J7050; P9016; S0164

== ENCOUNTER 2019-06-21 08:40 | Day surgery (SDC) | payer BC, MEDICARE ==
[~2019-06-21 08:40] MED LIST: DIPHENHYDRAMINE HCL 50 MG/ML VIAL ONE; EPINEPHRINE INJ 1 MG/10 ML DISP.SYRIN ONE; FENTANYL CITRATE INJ/PF 100 MCG/2 ML AMPUL ONE; FLUMAZENIL INJ 0.5 MG/5 ML VIAL ONE; GLUCAGON,HUMAN RECOMB 1 MG INJ ONE; MIDAZOLAM 2 MG/2 ML INJ ONE; NALOXONE HCL INJ/PF 0.4 MG/1 ML SDV ONE; ONDANSETRON HCL INJ/PF 4 MG/2 ML SDV ONE
--- NOTE | 2019-06-21 09:29 | Operative Report ---
Nonrecallable Operative Report DATE OF SURGERY: 06/21/19 PREOPERATIVE DIAGNOSIS: History of pyloric channel ulcer POSTOPERATIVE DIAGNOSIS: History of pyloric channel ulcer healed OPERATION: Esophagogastroduodenoscopy SURGEON: JAREK RITTER ANESTHESIA: Moderate Sedation TISSUE REMOVED OR ALTERED: None COMPLICATIONS: None ESTIMATED BLOOD LOSS: 0 INTRAOPERATIVE FINDINGS: See dictation PROCEDURE: Patient was brought to the endoscopy suite awake alert stable condition placed on the endoscopy table in a left lateral decubitus position after appropriate timeout and site verification she was sedated with Versed and fentanyl. The Olympus gastroscope was passed into the mouth through the posterior pharynx into the upper esophagus and easily traversed the esophagus down to the GE junction we passed it into the cardia stomach body antrum pylorus was identified it was intubated and we passed into the duodenum. Visualization of the duodenum revealed it to be normal without evidence of mucosal abnormalities as we slowly withdrew the scope into the duodenal bulb I examined that there is no evidence of any ulcers we slowly then withdrew the scope past the pylorus and the pyloric channel the previous ulcer that had been noted a few weeks ago has now healed there is no evidence of any erythema or ulcer bed. The scope was then withdrawn into the antrum that appeared to be normal we then retroflexed the scope and examined the GE junction and fundus also appeared to be normal without evidence of a significant hiatal hernia the scope was straightened and pulled back through the GE junction to the distal esophagus where that was examined and also appeared to be normal the scope was slowly withdrawn. Findings healed pyloric channel ulcer. Patient can follow-up PRN.
--- NOTE | 2019-06-21 09:30 | Discharge Summary ---
Discharge Summary (SDC) - Discharge Final Diagnosis: Her channel ulcer healed Date of Surgery: 06/21/19 Discharge Date: 06/21/19 Condition: Good Discharge Diet: As Tolerated Discharge Activity: Activity As Tolerated, No Lifting Over 10 Pounds Report the Following to Your Physician Immediately: Shortness of Breath, Nausea, Vomiting, Increase in Pain
[2019-06-21 10:06] VITALS: BP 143/69
== END 2019-06-21 10:56 | disposition home or self-care (01) ==
LOC: END 08:40
PROVIDERS: ATTEND Surgery
DX: Z87.11 Personal history of peptic ulcer disease (principal); Z09 Encounter for follow-up examination after completed treatment for conditions other than malignant neoplasm; E07.9 Disorder of thyroid, unspecified; I10 Essential (primary) hypertension; R73.03 Prediabetes; Z86.73 Personal history of transient ischemic attack (TIA), and cerebral infarction without residual deficits; Z79.899 Other long term (current) drug therapy; Z79.82 Long term (current) use of aspirin
CPT/HCPCS: 43235; J2250; J3010; J0171; J1200; J1610; J2310; J2405; J3490

== ENCOUNTER → 2019-08-09 | Outpatient (CLI) | payer BC, MEDICARE ==
--- NOTE | 2019-08-09 11:35 | XCELERA REPORT ---
[address] [address] Lower Extremity Arterial Evaluation Name: TIANA YORK Age: 73 yrs Gender: Female : 1945 Patient Status: Outpatient Patient Location: [facility] Study Date: 08/09/2019 09:31 AM Procedure: A color flow and duplex scan of the lower extremity arteries was performed bilaterally with velocity and waveform anaylsis. Reason For Study: PAIN IN LEGS Ordering Physician: PEACE MURILLO Performed By: Vladimir Garza Measurements and Calculations Right Left STITCHER OPERATOR PSV 122.2 115.2 cm/sec Prox PFA PSV -86.9 -75.6 cm/sec Prox SFA PSV 89.3 98.7 cm/sec Mid SFA PSV -92.6 -90.4 cm/sec Dist SFA PSV -74.2 -65.0 cm/sec Prox Pop A PSV 50.9 59.4 cm/sec Dist LIZANDRO PSV 62.1 65.9 cm/sec Dist INTERNET PROGRAMMER PSV 94.8 102.5 cm/sec Franky Pedis PSV -14.3 15.7 cm/sec Right Side Arterial Evaluation Normal velocity and triphasic waveforms noted from the Common Femoral artery to the infrageniculate vessels . Biphasic with low velocity in the Dorsalis Pedis artery. Ankle Brachial index not ordered. Left Side Arterial Evaluation Normal velocity and triphasic waveforms noted from the Common Femoral artery to the infrageniculate vessels . Biphasic with low velocity in the Dorsalis Pedis artery. Ankle Brachial index not ordered. Interpretation Summary Mild hemodynamically significant lesions in the bilateral lower extremities, on duplex imaging, at rest. Abnormal duplex findigns confined to the Dorsalsi Pedis. May not have much cliniccal consequence. : PEACE MURILLO > Rinku Jean
== END ==
LOC: SP 08:28
PROVIDERS: ATTEND Nurse Practitioner Primary Care
DX: M79.605 Pain in left leg (principal); M79.604 Pain in right leg
CPT/HCPCS: 93925

== ENCOUNTER → 2020-02-01 | Outpatient (CLI) | payer BC, MEDICARE ==
--- NOTE | 2020-02-01 09:53 | RADIOLOGY REPORT (SQ) ---
EXAM DESCRIPTION: BARIUM SWALLOW ESOPHAGUS IMAGES COMPLETED DATE/TIME: 02/01/2020 9:32 am REASON FOR STUDY: DYSPHAGIA, UNSPECIFIED (R13.10) R13.10 DYSPHAGIA, UNSPECIFIED COMPARISON: None. TECHNIQUE: Under fluoroscopic guidance, patient ingested effervescent granules followed by thick and thin barium. Fluoroscopic spot images and routine radiographic images acquired and stored on PACS. 12 MM BARIUM TABLET GIVEN: Yes. The tablet remained lodged at the GE junction for the entirety of the study. LIMITATIONS: None. FLUOROSCOPY TIME: FLUORO TIME: 1.8 minutes. 11 images submitted to PACS. FINDINGS: NEUROMUSCULAR COORDINATION OF SWALLOW: Normal. No aspiration. ESOPHAGEAL MOTILITY: Normal peristalsis. Tertiary contractions of the distal half of the esophagus. ESOPHAGEAL MUCOSA: Normal mucosa without masses or ulceration. Distal esophageal stricture with ruchi y in passage of a 12 mm barium tablet. GASTRO-ESOPHAGEAL JUNCTION: Small sliding hiatal hernia. Schatzki's ring formation causing high-grad e stricture delaying the passage of the tablet for longer than 10 minutes. No reflux was elicited. NON-GI TRACT STRUCTURES: No significant finding. OTHER: No other significant finding. 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 RECOMMEND E NDOSCOPY FOR FURTHER EVALUATION AND INTERVENTION. RECOMMENDATION: UPPER ENDOSCOPY. COMMENT: Quality ID [id number]: Final reports for procedures using fluoroscopy that document radiation exp osure indices, or exposure time and number of fluorographic images (if radiation exposure indices are not available) TECHNICAL DOCUMENTATION: JOB ID: [id number] 2010 [employer]- All Rights Reserved Reading location - IP/workstation name: [email or web address] [id number]
== END ==
LOC: RAD 08:40
PROVIDERS: ATTEND Surgery
DX: K22.2 Esophageal obstruction (principal); K44.9 Diaphragmatic hernia without obstruction or gangrene; R13.10 Dysphagia, unspecified
CPT/HCPCS: 74220

== ENCOUNTER → 2020-06-22 | Outpatient (CLI) | payer BC, MEDICARE ==
--- NOTE | 2020-06-22 12:05 | WOMENS IMAGING REPORT ---
EXAM DESCRIPTION: BONE DENSITY HIP/SPINE IMAGES COMPLETED DATE/TIME: 06/22/2020 11:40 am REASON FOR STUDY: M81.0 AGE-RELATED OSTEOPOROSIS WITHOUT CURRENT PATHOLOGICAL FRACTURE M25.551 PAIN IN RIGHT HIP M81.0 AGE-RELATED OSTEOPOROSIS W/O CURRENT PATHOLOGICAL FRAC COMPARISON: None. TECHNIQUE: Dual-Energy X-ray Absorptiometry (DEXA) of the AP Spine and Hip. LIMITATIONS: None. FINDINGS: LUMBAR SPINE: The bone mineral density (BMD) measured from L1-L3 in the AP projection correlates with a T-score of 0.0, which is normal as defined by the World Health Organization. L4 was excluded from the calculati on secondary to endplate sclerosis. BMD Change vs Baseline: N/A HIP: The bone mineral density (BMD) measured in the left hip correlates with a T-score of -1.0, which is n ormal as defined by the World Health Organization. BMD Change vs Baseline: N/A 10 year Fracture Risk Assessment: Major Osteoporotic Fracture: Not available. Hip Fracture: Not available. IMPRESSION: 1. LUMBAR SPINE WHO CLASSIFICATION: NORMAL. 2. HIP WHO CLASSIFICATION: NORMAL. OVERALL ASSESSMENT: WHO CLASSIFICATION: NORMAL. COMMENT: The World Health Organization defines low BMD as follows: T-score: Normal: At or above -1.0 Osteopenia: Between -1.0 and -2.5 Osteoporosis: At or below -2.5 without fractures Established osteoporosis: At or below -2.5 with fractures In general, you may wish to consider: Diagnosis Treatment Follow-up DEXA Normal BMD Prevention 2-3 years Osteopenia Prevention/Therapy 1-2 years Osteoporosis Therapy Yearly TECHNICAL DOCUMENTATION: JOB ID: [id number] [employer]- All Rights Reserved Reading location - IP/workstation name: [email or web address]
== END ==
LOC: WI 09:59
PROVIDERS: ATTEND Nurse Practitioner Family
DX: M25.551 Pain in right hip (principal); M81.0 Age-related osteoporosis without current pathological fracture
CPT/HCPCS: 77080

== ENCOUNTER 2020-08-11 14:23 | Emergency (ER) | payer BC, MEDICARE ==
--- NOTE | 2020-08-11 15:04 | ER Document Report ---
ED Medical Screen (RME) - General Chief Complaint: Cough Stated Complaint: COUGH/DIZZINESS Time Seen by Provider: 08/11/20 14:56 Primary Care Provider: LUCIANA WYNN FNP [Primary Care Provider] - Follow up as needed Mode of Arrival: Wheelchair Information source: Patient Notes: HPI; 74-year-old female past medical history significant for hypertension, thyroid disease, cardiac stents, CHF presents to the emergency room complaining of dizziness and lightheadedness for the past 2 days. Patient states she feels like "I am going to fall out". Also complains of a cough for the past 2 days. Denies any fevers, nausea, vomiting, abdominal pain, no diarrhea. Positive exposure to Covid 4 days ago. States grandson tested positive yesterday last exposure with him was 4 days ago. She has not been recently tested for Covid. She denies any chest pain, no shortness of breath, no difficulty breathing. Has not taken any medications for her symptoms. PE: Alert and oriented x3. Ill-appearing. Lungs: Clear to auscultation without rales, rhonchi, wheezes. Heart: Tachycardic without murmurs, rubs, gallops. I have greeted and performed a rapid initial assessment of this patient. A comprehensive ED assessment and evaluation of the patient, analysis of test results and completion of the medical decision making process will be conducted by additional ED providers. I have specifically instructed the patient or family members with the patient to immediately return to any nursing staff should anything change in the patient's condition or with their chief complaint. TRAVEL OUTSIDE OF THE [place] IN LAST 30 DAYS: No - Related Data Allergies/Adverse Reactions: No Known Allergies Allergy (Verified 08/11/20 14:53) Past Medical History - Past Medical History Cardiac Medical History: Reports: Hx Coronary Artery Disease - 2 stents, Hx Heart Attack, Hx Hypercholesterolemia, Hx Hypertension Pulmonary Medical History: Reports: Hx Bronchitis, Hx Pneumonia Denies: Hx Asthma, Hx COPD Neurological Medical History: Reports: Hx Cerebrovascular Accident - 2014. Denies: Hx Seizures Musculoskeltal Medical History: Reports Hx Arthritis, Reports Hx Fibromyalgia Skin Medical History: Denies Hx Eczema, Denies Hx Psoriasis Psychiatric Medical History: Reports: Hx Depression Past Surgical History: Reports: Hx Cardiac Catheterization - no stents, Hx Cholecystectomy, Hx Hysterectomy - Immunizations Hx Diphtheria, Pertussis, Tetanus Vaccination: Yes Doctor's Discharge - Discharge Referrals: LUCIANA WYNN, FAMILY MEDICINE RESIDENT [Primary Care Provider] - Follow up as needed
--- NOTE | 2020-08-11 15:43 | RADIOLOGY REPORT (SQ) ---
EXAM DESCRIPTION: CHEST SINGLE VIEW IMAGES COMPLETED DATE/TIME: 08/11/2020 3:30 pm REASON FOR STUDY: cough COMPARISON: 05/24/2019 NUMBER OF VIEWS: One view. TECHNIQUE: Single frontal radiographic view of the chest acquired. LIMITATIONS: None. FINDINGS: LUNGS AND PLEURA: No opacities, masses or pneumothorax. No pleural effusion. Attenuated bl ood vessels and flattened odalis-diaphragms. MEDIASTINUM AND HILAR STRUCTURES: No masses. Contour normal. HEART AND VASCULAR STRUCTURES: Heart normal in size. Normal vasculature. BONES: No acute findings. HARDWARE: None in the chest. OTHER: No other significant finding. IMPRESSION: COPD. NO ACUTE RADIOGRAPHIC FINDING IN THE CHEST. TECHNICAL DOCUMENTATION: JOB ID: [id number] 2010 [employer]- All Rights Reserved Reading location - IP/workstation name: [email or web address]
[2020-08-11 16:06] LABS: ABSOLUTE EOSINOPHILS # (AUTO) 0.1 10^3/uL (0.0-0.6); ABSOLUTE LYMPHOCYTES (AUTO) 1.9 10^3/uL (0.5-4.7); ABSOLUTE MONOCYTES (AUTO) 0.6 10^3/uL (0.1-1.4); ABSOLUTE NEUT (AUTO) 5.2 10^3/uL (1.7-8.2); BASOPHILS % (AUTO) 0.4 % (0-2); EOSINOPHILS % (AUTO) 1.5 % (0-6); HEMATOCRIT 35.2 % (36.0-47.0); HEMOGLOBIN 11.7 g/dL (12.0-15.5); LYMPHOCYTES % (AUTO) 24.3 % (13-45); MEAN CORPUSCULAR HEMOGLOBIN 28.1 pg (27.0-33.4); MEAN CORPUSCULAR HGB CONC 33.3 g/dL (32.0-36.0); MEAN CORPUSCULAR VOLUME 84 fl (80-97); MONOCYTES % (AUTO) 7.3 % (3-13); PLATELET COUNT 202 10^3/uL (150-450); RED BLOOD COUNT 4.18 10^6/uL (3.72-5.28); RED CELL DISTRIBUTION WIDTH 14.6 % (11.5-14.0); SEGMENTED NEUTROPHILS % (AUTO) 66.5 % (42-78); TOTAL CELLS COUNTED % (AUTO) 100 %; WHITE BLOOD COUNT 7.8 10^3/uL (4.0-10.5)
[2020-08-11 16:23] LABS: ALBUMIN 4.2 g/dL (3.5-5.0); ALKALINE PHOSPHATASE 45 U/L (38-126); ANION GAP 5 (5-19); ASPARTATE AMINO TRANSFERASE 25 U/L (14-36); BILIRUBIN,DIRECT 0.1 mg/dL (0.0-0.4); BILIRUBIN,TOTAL 0.4 mg/dL (0.2-1.3); BLOOD UREA NITROGEN 29 mg/dL (7-20); CALCIUM 9.5 mg/dL (8.4-10.2); CARBON DIOXIDE 29 mmol/L (22-30); CHLORIDE 104 mmol/L (98-107); GLUCOSE 96 mg/dL (75-110); POTASSIUM 4.4 mmol/L (3.6-5.0); TOTAL PROTEIN 6.6 g/dL (6.3-8.2)
[2020-08-11] MEDS ORDERED: NORMAL SALINE 1000 ML 1,000 ML IV ONE (16:59)
[2020-08-11] MEDS ORDERED: ONDANSETRON HCL INJ/PF 4 MG/2 ML SDV IV ONE (17:00)
--- NOTE | 2020-08-11 17:08 | ER Document Report ---
ED General - General Chief Complaint: Cough Stated Complaint: COUGH/DIZZINESS Time Seen by Provider: 08/11/20 14:56 Primary Care Provider: LUCIANA WYNN FNP [NO LOCAL MD] - Follow up as needed Mode of Arrival: Wheelchair Information source: Patient Notes: This 74-year-old woman presents to emergency department with a complaint of nausea and vomiting and generalized weakness for the past 2 weeks. She complains of weakness and dizziness. She also notes loss of appetite and she has been tested for prior occasions for the coronavirus and it was negative on each occasion. She had an exposure from her grandson who has tested positive for days ago. Patient denies fever or cough. Has been having this continued loss of appetite and decreased intake. TRAVEL OUTSIDE OF THE [place] IN LAST 30 DAYS: No - Related Data Allergies/Adverse Reactions: No Known Allergies Allergy (Verified 08/11/20 14:53) Past Medical History - General Information source: Patient - Social History Smoking Status: Never Smoker Family History: Reviewed & Not Pertinent, CVA, Malignancy, Other - Past Medical History Cardiac Medical History: Reports: Hx Coronary Artery Disease - 2 stents, Hx Heart Attack, Hx Hypercholesterolemia, Hx Hypertension Pulmonary Medical History: Reports: Hx Bronchitis, Hx Pneumonia Denies: Hx Asthma, Hx COPD Neurological Medical History: Reports: Hx Cerebrovascular Accident - 2014. Denies: Hx Seizures Musculoskeletal Medical History: Reports Hx Arthritis, Reports Hx Fibromyalgia Skin Medical History: Denies Hx Eczema, Denies Hx Psoriasis Psychiatric Medical History: Reports: Hx Depression Past Surgical History: Reports: Hx Cardiac Catheterization - no stents, Hx Cholecystectomy, Hx Hysterectomy - Immunizations Hx Diphtheria, Pertussis, Tetanus Vaccination: Yes Hx Pneumococcal Vaccination: 09/07/17 Review of Systems - Review of Systems Notes: Constitutional: See HPI HENT: Negative for sore throat. Eyes: Negative for visual changes. Cardiovascular: Negative for chest pain. Respiratory: Negative for shortness of breath. Gastrointestinal: Negative for abdominal pain, vomiting or diarrhea. Genitourinary: Negative for dysuria. Musculoskeletal: Negative for back pain. Skin: Negative for rash. Neurological: See HPI 10 point ROS negative except as marked above and in HPI. Physical Exam - Vital signs Vitals: Temp Pulse Resp BP Pulse Ox 97.8 F 70 16 116/67 98 08/11/20 14:27 08/11/20 14:27 08/11/20 14:27 08/11/20 14:27 08/11/20 14:27 - Notes Notes: PHYSICAL EXAMINATION: Physical Exam: General: Well-nourished well-developed 74-year-old female in no acute distress HEENT: NC/AT, pupils equal round and reactive to light, MM moist,nares clear, oropharynx clear, airway patent Neck: supple, no adenopathy, no masses. Good range of motion Lungs: clear, no wheezing, no rales no rhonchi CVS: Regular rate and rhythm no murmur gallop or rub Abdomen: Soft, active, nontender, no masses, no hepatosplenomegaly Ext: No edema, clubbing or cyanosis. Neuro: Alert and responsive, moving all 4 extremities on command, cranial nerves intact, no focal findings Skin: Intact no open lesions, no rash PSYCH: Normal mood, normal affect. Course - Vital Signs Vital signs: Temp Pulse Resp BP Pulse Ox 98.4 F 72 16 127/62 H 97 08/11/20 15:33 08/11/20 15:33 08/11/20 15:33 08/11/20 15:33 08/11/20 15:33 - Laboratory Result Diagrams: 08/11/20 15:40 08/11/20 15:40 Laboratory results interpreted by me: 08/11/20 08/11/20 15:40 15:40 Hgb 11.7 L Hct 35.2 L RDW 14.6 H BUN 29 H 08/11/20 19:30 I have reviewed laboratory data and used this information for the treatment decisions regarding the patient. - Diagnostic Test Radiology reviewed: Image reviewed, Reports reviewed Radiology results interpreted by me: 08/11/20 19:30 Chest X-Ray 08/11/20 15:02 IMPRESSION: COPD. NO ACUTE RADIOGRAPHIC FINDING IN THE CHEST. - EKG Interpretation by Nm Rate: Normal - EKG interpreted by Dr. Garza: Normal sinus rhythm, rate 60, DC interval 180 ms QT interval 388 ms, normal axis, no acute ST or T wave abnormalities, no ischemic findings, compared to EKG dated 09/15/2014, no significant interval changes. Interpretation normal EKG Discharge - Discharge Clinical Impression: Suspected 2019 novel coronavirus infection, Cough Condition: Good Disposition: HOME, SELF-CARE Instructions: COVID-19 Guidance for Persons Under Investigation Additional Instructions: He was seen in the emergency department tonight with symptoms suggestive of the coronavirus. You have been made a person of interest and will need to self quarantine while you are awaiting the results of your test. Tylenol or ibuprofen may be used for the associated muscle aches and pains or fever if needed. You may use Mucinex for your cough and congestion. Please use vitamin D and zinc, if your symptoms closely. If you are getting worse with increasing shortness of breath or other concerns you may return to the emergency department for further evaluation and treatment. HOME CARE INSTRUCTIONS & INFORMATION: Thank you for choosing us for your medical needs. We hope you're satisfied with the care you received. After you leave, you must properly care for your problem and, at the same time, observe its progress. Any condition can change. Some illnesses can change rapidly over hours or days. If your condition worsens, return to the Emergency Department or see your physician promptly. ABOUT YOUR X-RAYS AND EKG'S: If you had an EKG or X-rays taken, they have been read by the Emergency Physician. The X-rays and EKG's will also be read by a Radiologist or Regional Owner Operator Truck Driver within 24 hours. If discrepancies are noted, you will be notified by telephone. Please be certain the ED has a correct telephone number & address where you can be reached. Also, realize that some fractures or abnormalities do not show up on initial X-rays. If your symptoms continue, see your physician. ABOUT YOUR LABORATORY TEST: If you had laboratory tests, the results have been reviewed by the Emergency Physician. Some test results (for example cultures) may not be available for several days. You will be contacted if any test result shows you need additional treatment. Please be certain the ED has a correct telephone number and address where you can be reached. ABOUT YOUR MEDICATIONS: You will receive instructions on how to take your medicine on the prescription label you receive. Additional information may be provided by the Pharmacy. If you have questions afterwards, call the ED for clarification or further instructions. Some prescribed medications may cause drowsiness. Do not perform tasks such as driving a car or operating machinery without consulting your Pharmacist. If you feel you need a refill of pain medication, your condition will need re-evaluation. Please do not call for a refill of any medication. ABOUT YOUR SIGNATURE: Signature of this document acknowledges to followin. Understanding that you received emergency treatment and that you may be released before al medical problems are known or treated. Please be certain the ED has a correct phone number & address where you can be reached. 2. Acknowledgement that you will arrange for follow-up care as recommended. 3. Authorization for the Emergency Physician to provide information to your follow-up Physician in order to maximize your care. AT ANY TIME, IF YOUR SYMPTOMS CHANGE SIGNIFICANTLY OR WORSEN OR YOU DEVELOP NEW SYMPTOMS, RETURN TO THE EMERGENCY DEPARTMENT IMMEDIATELY FOR RE-EVALUATION. OUR GOAL IS TO PROVIDE EXCELLENT MEDICAL CARE! WE HOPE THAT WE HAVE MET YOUR EXPECTATIONS DURING YOUR EMERGENCY DEPARTMENT VISIT AND THAT YOU FEEL YOU HAVE RECEIVED EXCELLENT CARE! Referrals: LUCIANA WYNN FNP [NO LOCAL MD] - Follow up as needed
--- NOTE | 2020-08-11 18:56 | EKG REPORT ---
SEVERITY:- NORMAL ECG - SINUS RHYTHM : Confirmed by: Layo Sinha MD 11-Aug-2020 18:54:50
[2020-08-11 20:14] VITALS: BP 109/53
== END 2020-08-11 20:14 | disposition home or self-care (01) ==
LOC: ER 14:23
DX: J44.9 Chronic obstructive pulmonary disease, unspecified (principal); R53.1 Weakness; R42 Dizziness and giddiness; R11.2 Nausea with vomiting, unspecified; R63.0 Anorexia; I25.10 Atherosclerotic heart disease of native coronary artery without angina pectoris; I10 Essential (primary) hypertension; I25.2 Old myocardial infarction; Z20.828 Contact with and (suspected) exposure to other viral communicable diseases
CPT/HCPCS: 93005; 99285; 96361; 96374; 36415; 85025; 80053; 84484; 71045; 93010; U0003; J2405; J7030; C9803; 87635